=== PATIENT | female | born 1935 | race Caucasian/White ===

== ENCOUNTER 2016-09-30 21:54 | Emergency (ER) | payer MEDICARE ==
--- NOTE | 2016-10-01 07:38 | CT ---
PRELIMINARY REPORT/[facility]/EMERGENCY AFTER HOURS PROCEDURE: EXAM: CT Head Without Intravenous Contrast CLINICAL HISTORY: 80 years old, female; Injury or trauma; Fall; Initial encounter; Abrasion; Head, generalized; Injury date: 09/30/2016 TECHNIQUE: Axial computed tomography images of the head/brain without intravenous contrast. This CT exam was pe rformed using one or more of the following dose reduction techniques: automated exposure control, ad justment of the mA and/or kV according to patient size, and/or use of iterative reconstruction technique. EXAM DATE/TIME: 09/30/2016 10:20 PM COMPARISON: No relevant prior studies available. FINDINGS: Brain: Decreased attenuation of the supratentorial white matter is likely secondary to chronic micro vascular ischemia. No hemorrhage. Ventricles: Ventricular and subarachnoid spaces are age appropriate. Bones/joints: Hyperostosis frontalis interna. No acute fracture. Soft tissues: Unremarkable. Vasculature: Intracranial vascular calcification. Sinuses: Unremarkable as visualized. No acute sinusitis. Mastoid air cells: Unremarkable as visualized. No mastoid effusion. IMPRESSION: No acute intracranial abnormality. Thank you for allowing us to participate in the care of your patient. Dictated and Authenticated by: Giovanny Mejia MD 09/30/2016 10:35 PM Central Time ([place] \T\ [place]) FINAL REPORT CT OF THE BRAIN WITHOUT CONTRAST: DATE: 09/30/16. FINDINGS: A noncontrast CT was done following trauma. The ventricles are normal in size with no shift. No in tracranial bleeding or extraaxial hematoma was seen. No mass, edema, or acute stroke was encountere d. Patchy hypolucency is present throughout the deep white matter that is most likely due to chroni c microvascular ischemia. A small acute stroke would be missed against this background. The calvar ium appears intact with no sign of fracture. The sphenoid sinus and mastoid air cells are clear. IMPRESSION: No acute intracranial finding. POS: HOME
--- NOTE | 2016-10-01 07:39 | RAD ---
LEFT WRIST 3 VIEWS: DATE: 09/30/16. FINDINGS: No acute fracture was appreciated. The carpals appeared intact and the carpal relations were normal . The distal radius and ulna showed no definite acute injury. IMPRESSION: No acute bony findings. POS: HOME
--- NOTE | 2016-10-01 07:41 | RAD ---
CHEST 2 VIEWS: DATE: 09/30/16. FINDINGS: Comparison is made with a 07/25/16 study. The heart is normal in size. The mediastinum shows no widening or shift. The lungs are fully infla ritika with no sign of pneumothorax, pleural effusion, or other acute change. A little haziness in the right base was present previously and is certainly no worse today. The lungs are otherwise clear. An old fracture of the right 7th rib was noted. Arteriosclerotic change is present in the aorta. Degenerative changes are seen in the spine. IMPRESSION: Chronic changes, but no acute findings. POS: HOME
--- NOTE | 2016-10-01 08:24 | RAD ---
The bony pelvis appears intact. No fracture was seen. The SI joints and hip joints are symmetrical . The pubic rings appear intact. The left greater trochanter is more prominent than the right. The re may have been old trauma. I would tend to discount the finding unless there was point tenderness in this location. IMPRESSION: No acute traumatic findings POS: HOME
== END 2016-09-30 23:00 | disposition home or self-care (01) ==
LOC: BURERS 21:54
DX: S63.502A Unspecified sprain of left wrist, initial encounter (principal); E78.5 Hyperlipidemia, unspecified; I10 Essential (primary) hypertension; E11.9 Type 2 diabetes mellitus without complications; Z87.891 Personal history of nicotine dependence; Z79.84 Long term (current) use of oral hypoglycemic drugs; Z79.82 Long term (current) use of aspirin; W18.30XA Fall on same level, unspecified, initial encounter
CPT/HCPCS: 70450; 71020; 72170

== ENCOUNTER 2017-03-23 11:37 | Emergency (ER) | payer MEDICARE ==
--- NOTE | 2017-03-23 18:11 | RAD ---
CHEST 2 VIEWS: Date: 03/23/17 Comparison made with the 09/30/16 study. FINDINGS: The heart size is the same. Arteriosclerotic change is seen in the aorta. There is no vascular conges tion, edema, or pleural effusion. Blunting of the left costophrenic angle is chronic. There is a little increase in lung markings in the right base compared to the prior study. There is s light prominence of retrocardiac markings. I cannot exclude an early infiltrate here, though the over lying soft tissues do contribute to the density. An old, healed rib fracture is seen on the right. IMPRESSION: Slight increase in right basilar density. Cannot exclude an early infiltrate. CODE T. POS: HOME
== END 2017-03-23 12:22 | disposition home or self-care (01) ==
LOC: BURERS 11:37
DX: R05 Cough (principal); I25.10 Atherosclerotic heart disease of native coronary artery without angina pectoris; E78.5 Hyperlipidemia, unspecified; I10 Essential (primary) hypertension; E11.9 Type 2 diabetes mellitus without complications; Z85.3 Personal history of malignant neoplasm of breast; Z87.891 Personal history of nicotine dependence
CPT/HCPCS: 71020

== ENCOUNTER 2018-04-06 15:59 | Emergency (ER) | payer MEDICARE ==
[2018-04-06] MEDS ORDERED: Lidocaine Viscous Sol 2% 15 ml UD Cup ONE (16:12)
[2018-04-06] MEDS ORDERED: Fentanyl 100 MCG/2 ML VIAL ONE (16:33)
[2018-04-06 16:40] LABS: #Basophils 0.1 thou/uL (0.0-0.2); #Lymphocytes 1.8 thou/uL (1.20-3.40); #Monocytes 0.6 thou/uL (0.11-0.59); #Neutrophils 11.7 thou/uL (1.40-6.50); %Basophils 0.8 % (0.0-1.0); %Eosinophils 0.1 % (0.0-10.0); %Lymphocytes 12.9 % (21.0-51.0); %Monocytes 3.9 % (0.0-10.0); %Neutrophils 82.3 % (42.0-75.0); Hemoglobin 13.2 g/dL (12.0-16.0); Mean Corpuscular HGB CONC 32.7 g/dL (32.0-36.0); Mean Corpuscular Hemoglobin 32.4 pg (27.0-31.0); Mean Corpuscular Volume 98.9 fL (78.0-98.0); Mean Platelet Volume 7.8 fL (7.4-10.4); Platelet Count 213 thou/uL (130-400); RBC Distribution Width 12.3 % (11.5-14.5); Red Blood Cell (RBC) Count 4.06 mill/uL (4.20-5.40); White Blood Cell (WBC) Count 14.2 thou/uL (4.8-10.8)
[2018-04-06 16:55] LABS: ALT (SGPT) 19 U/L (8-55); AST (SGOT) 27 U/L (5-34); Albumin 4.2 g/dL (3.4-4.8); Alkaline Phosphatase 57 U/L (40-150); Anion Gap 15 mmol/L (10-20); BUN (Urea Nitrogen) 31 mg/dL (9.8-20.1); Bilirubin, Total 0.9 mg/dL (0.2-1.2); Calc. Creatinine Clearance 0 mL/min (70-130); Calcium 9.7 mg/dL (7.8-10.44); Carbon Dioxide 26 mmol/L (23-31); Chloride 102 mmol/L (98-107); Estimated GFR-MDRD 39; Globulin 3.1 g/dL (2.4-3.5); Glucose 125 mg/dL (83-110); Potassium 4.2 mmol/L (3.5-5.1); Protein, Total 7.3 g/dL (6.0-8.3); Sodium 139 mmol/L (136-145)
[2018-04-06] MEDS ORDERED: Magnesium Citrate 300 ML BOT ONE (17:40)
== END 2018-04-06 18:00 | disposition home or self-care (01) ==
LOC: BURERS 15:59
DX: K56.41 Fecal impaction (principal); I25.10 Atherosclerotic heart disease of native coronary artery without angina pectoris; E78.5 Hyperlipidemia, unspecified; I10 Essential (primary) hypertension; E11.9 Type 2 diabetes mellitus without complications; Z87.891 Personal history of nicotine dependence; Z79.899 Other long term (current) drug therapy; Z79.84 Long term (current) use of oral hypoglycemic drugs
CPT/HCPCS: 80053; 83605; 85025; 96374; J3010

== ENCOUNTER 2018-08-06 22:42 | Emergency (ER) | payer MEDICARE ==
[2018-08-06] MEDS ORDERED: Lidocaine Viscous Sol 2% 15 ml UD Cup ONE (23:14)
[2018-08-06] MEDS ORDERED: Fentanyl 100 MCG/2 ML VIAL ONE (23:14)
[2018-08-06] MEDS ORDERED: Fleet Enema 133 ML BOT ONE (23:35)
== END 2018-08-07 00:05 | disposition home or self-care (01) ==
LOC: BURERS 22:42
DX: E78.5 Hyperlipidemia, unspecified (principal); E11.9 Type 2 diabetes mellitus without complications; I10 Essential (primary) hypertension; I25.10 Atherosclerotic heart disease of native coronary artery without angina pectoris; Z87.891 Personal history of nicotine dependence; Z79.899 Other long term (current) drug therapy; Z79.891 Long term (current) use of opiate analgesic
CPT/HCPCS: 96374; J3010